=== PATIENT | female | born 1980 | race Two or more races ===

== ENCOUNTER → 2021-03-14 12:29 | Outpatient (BNVA) | payer OTHER, MEDICAID, SELFPAY | PROVIDERS: PCP Internal Medicine; Visit Provider Physician Assistant Surgical ==

== ENCOUNTER → 2021-03-17 08:12 | Outpatient (BNVA) | payer OTHER, MEDICAID, SELFPAY | PROVIDERS: PCP Internal Medicine; Visit Provider Surgery ==

== ENCOUNTER 2021-03-25 11:19 | Outpatient (REF) | payer OTHER, SELFPAY ==
--- NOTE | ~2021-03-25 | XR_ITS ---
EXAMINATION: XR CHEST CLINICAL INFORMATION: Obesity COMPARISON: None TECHNIQUE: 2 views of the chest were obtained. FINDINGS: No significant abnormality is noted involving the heart, lungs, mediastinum, bony thorax or soft tissues. XR/XR chest 2V IMPRESSION: No acute disease.
--- NOTE | 2021-03-25 11:28 | ECG_ITS ---
Test Reason : e66.09 Blood Pressure : / mmHG Vent. Rate : 057 BPM Atrial Rate : 057 BPM P-R Int : 162 ms QRS Dur : 088 ms QT Int : 434 ms P-R-T Axes : 007 014 023 degrees QTc Int : 422 ms Sinus bradycardia Low voltage QRS Borderline ECG No previous ECGs available Referred By: Jack Kiser Electronically Signed By:ELENA HURT MD
[2021-03-25 11:42] LABS: MANUAL DIFF FLAG NO
[2021-03-25 12:08] LABS: Basophils Percent Auto 0.4 % (0-2); Eosinophils Absolute Auto 0.3 X10*3/uL (0.0-0.4); Eosinophils Percent Auto 3.8 % (0-4); Hematocrit 42.8 % (37.0-47.0); Hemoglobin 14.5 g/dl (12.0-16.0); Imm Gran Abs Auto 0.02 X10*3/uL (0.00-0.03); Imm Gran Pct Auto 0.2 % (0.0-0.4); Lymphocytes Absolute Auto 2.7 X10*3/uL (1.2-4.9); Lymphocytes Percent Auto 29.6 % (20-40); Mean Corpuscular HGB Conc 33.9 g/dl (31.0-35.0); Mean Corpuscular Hemoglobin 32.4 pg (27.0-33.0); Mean Corpuscular Volume 95.5 fL (80.0-98.0); Mean Platelet Volume 10.1 fL (9.4-12.3); Monocytes Absolute Auto 0.8 X10*3/uL (0.1-1.2); Monocytes Percent Auto 8.6 % (2-11); Neutrophils Percent Auto 57.4 % (45-73); Platelet Count 207 X10*3/uL (160-400); Red Blood Count 4.48 X10*6/uL (4.20-5.50); Red Cell Distribution Width 12.9 % (11.0-16.0); White Blood Count 9.1 X10*3/uL (4.8-10.8)
[2021-03-25 12:38] LABS: Estimated Average Glucose 100 mg/dL; Hemoglobin A1c % 5.1 %
[2021-03-25 12:51] LABS: Alanine Aminotransferase 24 U/L (0-31); Albumin Level 4.2 g/dL (3.5-5.0); Alkaline Phosphatase 69 U/L (39-117); Anion Gap 12 (12-20); Aspartate Amino Transferase 17 U/L (5-31); Bilirubin Total 0.5 mg/dL (0.0-1.0); Blood Urea Nitrogen 16 mg/dL (9-16); C Reactive Protein 0.96 mg/dL (< or = 0.50); Calcium 8.9 mg/dL (8.4-10.2); Carbon Dioxide 22 mmol/L (22-29); Chloride 110 mmol/L (96-108); Cholesterol 251 mg/dL; Estimated Glomerular Filt Rate 60; Glucose Random 96 mg/dL (60-115); HDL Cholesterol 55 mg/dL; Iron 50 mcg/dL (30-160); LDL Cholesterol Calculated 181 mg/dl; Percent Iron Saturation 16 % (15-50); Sodium 140 mmol/L (135-145); Total Iron Binding Capacity 305 mcg/dL (228-428); Triglycerides 77 mg/dL; Unsaturated Iron Binding 255 ug/dL
[2021-03-25 13:15] LABS: Ferritin 157 ng/mL (10-250); TSH reflex Free T4 0.87 uIU/mL (0.32-4.0); Vitamin D 25-OH Total 27.8 ng/mL (>30)
[2021-03-25 13:28] LABS: Folate 12.5 ng/mL (> or = 4.0); Vitamin B12 371 pg/mL (200-900)
[2021-03-25 13:29] LABS: Insulin 15 uU/mL (2-29)
[2021-03-26 18:42] LABS: Calcium (PTHI) 8.9 mg/dL (8.6-10.2); PTHI 29 pg/mL (14-64)
[2021-03-28 07:46] LABS: Zinc 58 mcg/dL (60-130)
[2021-03-28 14:03] LABS: H Pylori Breath Test Positive (Negative)
[2021-03-28 22:11] LABS: Vitamin A 53 mcg/dL (38-98)
[2021-03-30 11:10] LABS: Vitamin B1 17 nmol/L (8-30)
== END 2021-03-25 11:20 | disposition home or self-care (01) ==
LOC: HO.XRAY 11:19
PROVIDERS: PCP Internal Medicine; Visit Provider Surgery
DX: E66.9 Obesity, unspecified (principal); Z68.37 Body mass index [BMI] 37.0-37.9, adult; G47.30 Sleep apnea, unspecified; K21.9 Gastro-esophageal reflux disease without esophagitis; Z11.0 Encounter for screening for intestinal infectious diseases
CPT/HCPCS: 36415; 71046; 80053; 80061; 82306; 82607; 82728; 82746; 83013; 83036; 83525; 83540; 83970; 84425; 84443; 84590; 84630; 85025; 86140; 93005; 99211

== ENCOUNTER → 2021-04-24 08:06 | Outpatient (BNVA) | payer OTHER, SELFPAY | PROVIDERS: PCP Internal Medicine; Visit Provider Dietitian, Registered ==